=== PATIENT | male | born 2000 | race Caucasian/White ===

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

== ENCOUNTER 2018-04-05 14:42 | Emergency (ER) | payer MEDICAID ==
[~2018-04-05] VITALS: Ht 172.7 cm; Wt 68.0 kg
[2018-04-05] MEDS ORDERED: ACETAMINOPHEN 325MG TABLET PO ONE (19:00)
[2018-04-05] MEDS ORDERED: ONDANSETRON HCL 4MG/2ML INJ IV STA (19:19)
[2018-04-05] MEDS ORDERED: SODIUM CHLORIDE 0.9% 1,000 ML IV ONE (19:19)
[2018-04-05 20:25] LABS: BASOPHILS % 0.4 % (0.0-2.0); HEMATOCRIT. 45.8 % (42.0-52.0); HEMOGLOBIN. 15.5 g/dL (14.0-18.0); LYMPHOCYTES % 9.5 % (20.0-50.0); MEAN CORPUSCULAR HEMOGLOBIN 29.6 pg (28.0-32.0); MEAN CORPUSCULAR VOLUME 87.3 fL (80.0-94.0); MEAN PLATELET VOLUME 9.4 fl (7.4-10.4); MONOCYTES % 11.9 % (2.0-8.0); NEUTROPHILS % 78.2 % (40.0-76.0); PLATELET 174 x1000/uL (130-400); RED BLOOD CELL COUNT 5.24 mill/uL (4.7-6.1); RED CELL DISTRIBUTION WIDTH 13.5 % (11.6-14.6)
[2018-04-05 20:30] LABS: CHLORIDE 100 mEq/L (98-107)
[2018-04-05 20:44] LABS: CLARITY URINE CLEAR (CLEAR); COLOR URINE YELLOW (YELLOW); KETONES URINE NEGATIVE (NEGATIVE); LEUKOCYTE ESTERASE URINE TRACE (NEGATIVE); NITRITE URINE NEGATIVE (NEGATIVE); OCCULT BLOOD URINE 1+ (NEGATIVE); PROTEIN URINE 1+ (NEGATIVE)
[2018-04-05] MEDS ORDERED: OSELTAMIVIR 75MG CAPSULE PO ONE (21:15)
[2018-04-05 21:29] VITALS: BP 115/68
== END 2018-04-05 21:34 | disposition home or self-care (01) ==
LOC: ER 14:42
DX: J11.1 Influenza due to unidentified influenza virus with other respiratory manifestations (principal); R03.0 Elevated blood-pressure reading, without diagnosis of hypertension
CPT/HCPCS: 36415; 71045; 80053; 81003; 83690; 85025; 87804; 96361; 96374; 99284; J2405; J7030; Z7610

== ENCOUNTER 2018-10-11 17:12 | Emergency (ER) | payer MEDICAID, OTHER ==
[~2018-10-11] VITALS: Ht 172.7 cm; Wt 67.0 kg
[2018-10-11 17:59] LABS: CLARITY URINE CLEAR (CLEAR); COLOR URINE YELLOW (YELLOW); KETONES URINE TRACE (NEGATIVE); LEUKOCYTE ESTERASE URINE NEGATIVE (NEGATIVE); NITRITE URINE NEGATIVE (NEGATIVE); OCCULT BLOOD URINE NEGATIVE (NEGATIVE); PROTEIN URINE NEGATIVE (NEGATIVE); SPECIFIC GRAVITY URINE 1.026 (1.005-1.030)
[2018-10-11] MEDS ORDERED: ONDANSETRON HCL 4MG/2ML INJ IV ONE (18:00)
[2018-10-11] MEDS ORDERED: SODIUM CHLORIDE 0.9% 1,000 ML IV ONE (18:00)
[2018-10-11] MEDS ORDERED: KETOROLAC 30MG/ML VIAL IV ONE (18:00)
[2018-10-11 18:03] LABS: CHLORIDE 103 mEq/L (98-107)
[2018-10-11 18:04] LABS: HEMOGLOBIN. 15.6 g/dL (14.0-18.0); MEAN CORPUSCULAR HEMOGLOBIN 29.9 pg (28.0-32.0); MEAN CORPUSCULAR VOLUME 88.3 fL (80.0-94.0); MEAN PLATELET VOLUME 9.4 fl (7.4-10.4); PLATELET 173 x1000/uL (130-400); RED BLOOD CELL COUNT 5.21 mill/uL (4.7-6.1); RED CELL DISTRIBUTION WIDTH 13.4 % (11.6-14.6)
[2018-10-11 18:23] LABS: PLATELET ESTIMATE NORMAL
[2018-10-11 22:11] VITALS: BP 115/70
== END 2018-10-11 22:12 | disposition home or self-care (01) ==
LOC: ER 17:12
DX: R11.2 Nausea with vomiting, unspecified (principal); M54.5 Low back pain; R03.0 Elevated blood-pressure reading, without diagnosis of hypertension; F12.90 Cannabis use, unspecified, uncomplicated
CPT/HCPCS: 36415; 80053; 81003; 85025; 96374; 96375; 99283; J1885; J2405; J7030

== ENCOUNTER 2021-08-05 11:01 | Emergency (ER) | payer OTHER ==
[~2021-08-05] VITALS: Ht 172.7 cm; Wt 75.0 kg
[2021-08-05 11:12] VITALS: BP 110/80
[2021-08-05] MEDS ORDERED: IBUPROFEN 600MG TABLET PO ONE (11:15)
[2021-08-05] MEDS ORDERED: TETANUS, DIPHTHERIA, PERTUSSIS VAC/PF 0.5ML (>10YR OLD) IM ONE (11:15)
[2021-08-05] MEDS ORDERED: BACITRACIN ZINC OINT UDPKT TOP ONE (11:15)
[2021-08-05] MEDS ORDERED: BO1 TP (12:26)
[2021-08-05] MEDS ORDERED: IBUP-2029 MT (12:26)
[2021-08-05] MEDS ORDERED: AMOX1TAB16 MT (12:26)
== END 2021-08-05 13:12 | disposition home or self-care (01) ==
LOC: ER 11:40
DX: S60.371A Other superficial bite of right thumb, initial encounter (principal); S60.470A Other superficial bite of right index finger, initial encounter; W54.0XXA Bitten by dog, initial encounter; Y93.89 Activity, other specified; Y92.017 Garden or yard in single-family (private) house as the place of occurrence of the external cause
CPT/HCPCS: 73130; 90471; 90715; 99283

== ENCOUNTER 2022-07-21 18:19 | Emergency (ER) | payer OTHER ==
[~2022-07-21] VITALS: Ht 172.7 cm; Wt 74.8 kg
[~2022-07-21 18:19] MED LIST: AMOX1TAB16 MT; BO1 TP; IBUP-2029 MT
[2022-07-21] MEDS ORDERED: ONDANSETRON HCL 4MG/2ML INJ IV STA (18:35)
[2022-07-21] MEDS ORDERED: MORPHINE SULFATE 4 MG/ML CPJ (NOT FOR IM USE) IV STA (18:35)
[2022-07-21] MEDS ORDERED: SODIUM CHLORIDE 0.9% 1,000 ML IV ONE (18:45)
[2022-07-21] MEDS ORDERED: TETANUS, DIPHTHERIA, PERTUSSIS VAC/PF 0.5ML (>10YR OLD) IM ONE (18:45)
[2022-07-21] MEDS ORDERED: CEPH500C2 MT (21:52)
[2022-07-21] MEDS ORDERED: IBUP-2029 MT (21:52)
[2022-07-21 22:00] VITALS: BP 108/79
== END 2022-07-21 23:03 | disposition home or self-care (01) ==
LOC: ER 18:19
DX: M25.522 Pain in left elbow (principal); F12.10 Cannabis abuse, uncomplicated
CPT/HCPCS: 71045; 73080; 90471; 90715; 96361; 96374; 96375; 99291; J2270; J2405; J7030; A4565

== ENCOUNTER 2022-07-28 11:25 | Emergency (ER) | payer OTHER ==
[~2022-07-28] VITALS: Ht 172.7 cm; Wt 72.5 kg
[~2022-07-28 11:25] MED LIST changes: +CEPH500C2 MT
[2022-07-28] MEDS ORDERED: CEPH500T MT (14:03)
[2022-07-28] MEDS ORDERED: NAPR-681 MT (14:03)
[2022-07-28 14:22] VITALS: BP 123/78
== END 2022-07-28 14:25 | disposition home or self-care (01) ==
LOC: ER 11:25
DX: M25.522 Pain in left elbow (principal); Z48.00 Encounter for change or removal of nonsurgical wound dressing
CPT/HCPCS: 73080; 99283